=== PATIENT | female | born 1980 ===

== ENCOUNTER 2020-05-26 17:03 | Outpatient (REF) | payer OTHER, SELFPAY ==
--- NOTE | 2020-05-26 17:08 | MM_ITS ---
EXAMINATION: MM SCREENING DIGITAL BREAST TOMOSYNTHESIS, BILATERAL CLINICAL INFORMATION: Screening. Asymptomatic. No prior breast imaging. Age 40. No family history breast cancer. The lifetime risk of breast cancer based on the Tyrer-Cuzick Model is 11%. COMPARISON: None (current study represents initial baseline exam). TECHNIQUE: Digital breast tomosynthesis is performed in both the craniocaudal and mediolateral oblique views along with computer-aided detection (CAD). Synthesized 2D images are generated from the tomosynthesis. FINDINGS: There are scattered areas of fibroglandular density (ACR BI-RADS breast composition Category b). There is denser breast tissue composition in the upper outer quadrants. There are no significant masses, abnormal calcifications, or other abnormalities. The axilla and skin contours are unremarkable. IMPRESSION: No mammographic evidence of malignancy. ASSESSMENT: BI-RADS 1: Negative RECOMMENDATION: Routine annual mammography screening. This patient's information was entered into a reminder system with a target due date for their next mammogram.
== END 2020-05-26 17:04 | disposition home or self-care (01) ==
LOC: HO.MAMMO 17:03
PROVIDERS: Visit Provider Physician Assistant
DX: Z12.31 Encounter for screening mammogram for malignant neoplasm of breast (principal)
CPT/HCPCS: 77063; 77067

== ENCOUNTER 2021-07-05 09:45 | Emergency (ER) | payer OTHER, SELFPAY ==
--- NOTE | ~2021-07-05 | US_ITS ---
EXAMINATION: US PELVIS CLINICAL INFORMATION: Vaginal bleeding for 2 weeks. Abdominal cramping. COMPARISON: CT abdomen pelvis 12/07/2015 TECHNIQUE: Ultrasound of the pelvis is performed using both transabdominal and transvaginal transducers along with Doppler. Transvaginal imaging is performed due to inadequate visualization transabdominally. LMP: 2 weeks ago to current. FINDINGS: Uterus: The uterus is anteverted and measures 7.8 x 3.4 x 4.5 cm. No uterine mass. The double wall endometrial thickness is 0.5 mm. The uterus is smooth in contour and has normal myometrial echogenicity. No visible fibroid. E posterior to the fundus of uterus is a anechoic cyst measuring 1.2 x 0.7 x 1 cm. Adnexa: Both ovaries are visualized. There is normal color flow to the adnexa. There is no ovarian torsion. There is no pelvic ascites or fluid collection. Right ovary measures 1.6 x 1.2 x 1.4 cm. Volume 1.4 Left ovary measures 5.6 x 3.4 x 4.4 cm. There is a cyst in the left ovary measuring 4.7 x 3.1 x 3.8 cm. This is mostly anechoic. There is a small soft tissue nodule along the wall measuring 7 x 8 x 10 mm. Vascular flow not defined within the nodule with color Doppler. The CAT scan of 12/07/2015 demonstrate a cyst in the left adnexa previously measuring 5.3 x 3.6 x 5.1 cm. US/US pelvic and transvaginal IMPRESSION: 1. Normal ultrasound of uterus and right ovary. 2. Cyst in the left adnexa related to the ovary measuring 4.7 cm. This has a solid nodule along the wall measuring 1 cm. This cyst was also present on the CAT scan of 12/07/2015 previously measured 5.3 cm. This can be further assessed with MRI without and with IV contrast. Surgical consult may be considered as well.
--- NOTE | ~2021-07-05 | US_ITS ---
EXAMINATION: US PELVIS CLINICAL INFORMATION: Vaginal bleeding for 2 weeks. Abdominal cramping. COMPARISON: CT abdomen pelvis 12/07/2015 TECHNIQUE: Ultrasound of the pelvis is performed using both transabdominal and transvaginal transducers along with Doppler. Transvaginal imaging is performed due to inadequate visualization transabdominally. LMP: 2 weeks ago to current. FINDINGS: Uterus: The uterus is anteverted and measures 7.8 x 3.4 x 4.5 cm. No uterine mass. The double wall endometrial thickness is 0.5 mm. The uterus is smooth in contour and has normal myometrial echogenicity. No visible fibroid. E posterior to the fundus of uterus is a anechoic cyst measuring 1.2 x 0.7 x 1 cm. Adnexa: Both ovaries are visualized. There is normal color flow to the adnexa. There is no ovarian torsion. There is no pelvic ascites or fluid collection. Right ovary measures 1.6 x 1.2 x 1.4 cm. Volume 1.4 Left ovary measures 5.6 x 3.4 x 4.4 cm. There is a cyst in the left ovary measuring 4.7 x 3.1 x 3.8 cm. This is mostly anechoic. There is a small soft tissue nodule along the wall measuring 7 x 8 x 10 mm. Vascular flow not defined within the nodule with color Doppler. The CAT scan of 12/07/2015 demonstrate a cyst in the left adnexa previously measuring 5.3 x 3.6 x 5.1 cm. US/US pelvic ovarian doppler IMPRESSION: 1. Normal ultrasound of uterus and right ovary. 2. Cyst in the left adnexa related to the ovary measuring 4.7 cm. This has a solid nodule along the wall measuring 1 cm. This cyst was also present on the CAT scan of 12/07/2015 previously measured 5.3 cm. This can be further assessed with MRI without and with IV contrast. Surgical consult may be considered as well.
[2021-07-05 10:33] VITALS: BP 125/74; PULSE 76; RESP 16; TEMP 36.9; O2SAT 100; BMI 27.3
[2021-07-05 12:20] LABS: MANUAL DIFF FLAG NO
[2021-07-05 12:22] LABS: Basophils Percent Auto 0.2 % (0-2); Eosinophils Percent Auto 0.5 % (0-4); Hematocrit 39.3 % (37.0-47.0); Hemoglobin 13.4 g/dl (12.0-16.0); Imm Gran Abs Auto 0.02 X10*3/uL (0.00-0.03); Imm Gran Pct Auto 0.3 % (0.0-0.4); Lymphocytes Absolute Auto 1.5 X10*3/uL (1.2-4.9); Mean Corpuscular HGB Conc 34.1 g/dl (31.0-35.0); Mean Corpuscular Hemoglobin 32.8 pg (27.0-33.0); Mean Corpuscular Volume 96.1 fL (80.0-98.0); Mean Platelet Volume 9.4 fL (9.4-12.3); Monocytes Absolute Auto 0.4 X10*3/uL (0.1-1.2); Monocytes Percent Auto 6.8 % (2-11); Neutrophils Absolute Auto 3.8 x10*3/uL (2.0-8.3); Neutrophils Percent Auto 66.2 % (45-73); Platelet Count 232 X10*3/uL (160-400); Red Blood Count 4.09 X10*6/uL (4.20-5.50); Red Cell Distribution Width 11.7 % (11.0-16.0); White Blood Count 5.7 X10*3/uL (4.8-10.8)
[2021-07-05 12:36] LABS: Anion Gap 12 (12-20); Blood Urea Nitrogen 9 mg/dL (9-16); Calcium 8.9 mg/dL (8.4-10.2); Carbon Dioxide 18 mmol/L (22-29); Chloride 110 mmol/L (96-108); Creatinine Clr Calc Pharmacy 103.3; Estimated Glomerular Filt Rate > 60; Glucose Random 85 mg/dL (60-115); Potassium 4.1 mmol/L (3.3-5.1); Sodium 136 mmol/L (135-145)
[2021-07-05 12:42] LABS: Appearance Urine HAZY; Color Urine YELLOW; Glucose Urine UA NEG (NEG); Leukocyte Esterase Urine NEG (NEG); Nitrite Urine NEG (NEG); Specific Gravity - Urine 1.025 (1.005-1.025); UACC Culture Trigger NO; Urine Blood 3+ (NEG); Urine Ketones NEG (NEG); Urine Protein NEG (NEG-TRACE)
[2021-07-05 13:14] LABS: Squamous Epithelial Cell Urine 2+ /LPF
--- NOTE | 2021-07-05 14:53 | ED.GENADULT ---
HPI - General Adult General Chief complaint: Vaginal Bleeding Stated complaint: vaginal bleeding, multiple complaints Time Seen by Provider: 07/05/21 13:00 Source: patient Mode of arrival: ambulatory History of Present Illness HPI narrative: 41-year-old female with past medical history of tubal ligation presenting to the ED complaining of bright red vaginal bleeding x2 weeks. Admits bleeding initially started as normal menstruation however continued bleeding, using about 1-2 pads daily. Reports associated lower abdominal/suprapubic cramping, nausea, and intermittent dizzy spells. Denies fever, chills, vomiting, diarrhea, vaginal discharge, CP/SOB, dysuria/hematuria Patient is sexually active with 1 partner, denies concern for STI Onset (ago): week(s) Related Data Allergies Allergy/AdvReac Type Severity Reaction Status Date / Time No Known Allergies Allergy Verified 07/06/20 08:53 Review of Systems Review of Systems: Constitutional: No Fever, No Fatigue, No Malaise ENT/Mouth: No Ear Pain, No Nasal Congestion,No sore throat, No Rhinorrhea Eyes: No Eye Pain, No Swelling, No Redness, No Vision Changes Cardiovascular: No Chest Pain, No SOB Respiratory: No Cough, No Dyspnea Gastrointestinal: + Nausea, No Vomiting, No Diarrhea, No Constipation, No Abdominal pain Genitourinary: + irregular bleeding, No vaginal discharge, No Dysuria, No Urinary Frequency, No Hematuria,No Flank Pain Musculoskeletal: No joint pain, No Myalgias, No Joint Swelling Skin: No Skin Lesions, No rash Neuro: No Weakness, No Numbness,+ intermittent Dizziness, No Headache Yes all other systems are reviewed and are negative [facility] Past Medical History Attestation statement: The following information was validated with the patient. Surgical History History of tubal ligation Family History Family History Father High cholesterol Hypertension Mother High cholesterol Hypertension Maternal Grandmother No problems noted. Paternal Grandmother Lung cancer Cervical cancer Paternal Grandfather Medical history unknown Social History Social History Advance Directives: No Patient : No Physical Exam Vital Signs: Vital Signs: Last Vital Signs Temp 98.5 F 07/05/21 10:33 Pulse 76 07/05/21 10:33 Resp 16 07/05/21 10:33 BP 125/74 07/05/21 10:33 Pulse Ox 100 07/05/21 10:33 Body Mass Index 27.3 Const: General: cooperative, healthy appearing and no acute distress Orientation/consciousness: patient oriented x3 Limitations: no limitations HENMT: Head: Yes normal to inspection Ears: hearing grossly normal bilaterally General nose exam: Normal external nose present Face and sinus: Yes normal facial exam Eyes: General: appearance normal, both eyes and all related structures EOM: EOMs intact bilaterally Neck: Neck: Yes normal visual inspection and Yes no meningeal signs Resp: Effort & Inspection: normal respiratory effort and no respiratory distress Auscultation: clear to auscultation bilaterally Cardio: Rate: regular rate Heart sounds: S1 normal heart sound present and S2 normal heart sound present GI: Inspection: Yes normal to inspection Palpation (GI): Soft to palpation, Tenderness to palpation present (GI) (Suprapubic), no guarding and not rigid : Other: On pelvic scant clear discharge/blood coming from cervix, no active hemorrhage. No lesions. No CMT. Mild bilateral adnexal tenderness General: Yes no CVA tenderness Back/Spine/Pelvis: Back: no CVA tenderness Skin: Rashes: no rashes Wounds: no wounds Neuro: General: patient oriented x3 and no meningeal signs Gait exam (Neuro): Normal gait present Extrem: General: Yes normal to inspection Course Course Course Narrative: -1549--no leukocytosis. H&H stable. Labs otherwise unremarkable, beta quant negative -UA with RBCs/not infected -1645--US pelvic ovarian doppler IMPRESSION: 1. Normal ultrasound of uterus and right ovary. 2. Cyst in the left adnexa related to the ovary measuring 4.7 cm. This has a solid nodule along the wall measuring 1 cm. This cyst was also present on the CAT scan of 12/07/2015 previously measured 5.3 cm. This can be further assessed with MRI without and with IV contrast. Surgical consult may be considered as well. >> results discussed with patient including worrisome signs and symptoms and strict return precautions any to follow-up with OBGYN, patient verbalized understanding feel safe for discharge home at this time Will hold on STI treatment until cultures result, as patient has low concern for STI at this time Medical Decision Making MDM Narrative Medical decision making narrative: 41-year-old female with past medical history of tubal ligation presenting to the ED complaining of bright red vaginal bleeding x2 weeks. Admits bleeding initially started as normal menstruation however continued bleeding, using about 1-2 pads daily. On exam vital signs stable, NAD/nontoxic, abdomen soft with suprapubic tenderness, no CVAT. On pelvic scant clear discharge/vaginal bleeding noted from cervix without active hemorrhage. No CMT. Mild bilateral adnexal tenderness. Exam not consistent with PID Concern for DUB vs ovarian cyst vs ovarian torsion. Rule out although low concern with patient's history of tubal ligation. Lower concern for appendicitis/diverticulitis/pancreatitis Plan: Labs, UA, STI testing, ultrasound Medical Records Medical records reviewed: Yes I reviewed the patient's medical records. Lab Data Lab results reviewed: Yes I reviewed the patient's lab results. Result diagrams: 07/05/21 12:05 07/05/21 12:05 Labs: Lab Results 07/05/21 07/05/21 07/05/21 Range/Units 12:05 12:05 12:05 WBC 5.7 (4.8-10.8) X10*3/uL RBC 4.09 L (4.20-5.50) X10*6/uL Hgb 13.4 (12.0-16.0) g/dl Hct 39.3 (37.0-47.0) % MCV 96.1 (80.0-98.0) fL MCH 32.8 (27.0-33.0) pg MCHC 34.1 (31.0-35.0) g/dl RDW 11.7 (11.0-16.0) % Plt Count 232 (160-400) X10*3/uL MPV 9.4 (9.4-12.3) fL Immature Gran % (Auto) 0.3 (0.0-0.4) % Neut % (Auto) 66.2 (45-73) % Lymph % (Auto) 26.0 (20-40) % Collin % (Auto) 6.8 (2-11) % Eos % (Auto) 0.5 (0-4) % Baso % (Auto) 0.2 (0-2) % Lymph # (Auto) 1.5 (1.2-4.9) X10*3/uL Collin # (Auto) 0.4 (0.1-1.2) X10*3/uL Eos # (Auto) 0.0 (0.0-0.4) X10*3/uL Baso # (Auto) 0.0 (0.0-0.2) X10*3/uL Abs Immat Gran (auto) 0.02 (0.00-0.03) X10*3/uL Absolute Neuts (auto) 3.8 (2.0-8.3) x10*3/uL Absolute Nucleated RBC 0.000 (0.0-0.012) X10*3/uL Nucleated RBC % (auto) 0.0 (0.0-0.2) /100WBC Sodium 136 (135-145) mmol/L Potassium 4.1 (3.3-5.1) mmol/L Chloride 110 H (96-108) mmol/L Carbon Dioxide 18 L (22-29) mmol/L Anion Gap 12 (12-20) BUN 9 (9-16) mg/dL Creatinine 0.59 (0.5-1.4) mg/dL Estim Creat Clear Calc 103.3 Estimated GFR > 60 Random Glucose 85 (60-115) mg/dL Calcium 8.9 (8.4-10.2) mg/dL Magnesium 2.1 (1.6-2.6) mg/dL Total Bilirubin 0.6 (0.0-1.0) mg/dL Direct Bilirubin 0.2 (0.0-0.5) mg/dL AST 22 (5-31) U/L ALT 25 (0-31) U/L Alkaline Phosphatase 64 (39-117) U/L Total Protein 7.6 (6.5-8.0) g/dL Albumin 4.4 (3.5-5.0) g/dL Beta HCG, Quant < 2 mIU/mL Urine Color YELLOW Urine Appearance HAZY Urine pH 6.0 (5.0-8.0) Ur Specific [place] 1.025 (1.005-1.025) Urine Protein NEG (NEG-TRACE) MG/DL Urine Glucose (UA) NEG (NEG) MG/DL Urine Ketones NEG (NEG) MG/DL Urine Blood 3+ H (NEG) Urine Nitrite NEG (NEG) Ur Leukocyte Esterase NEG (NEG) Urine RBC 1-4 (0) /HPF Urine WBC 1-4 (0-4) /HPF Ur Squamous Epith Cells 2+ /LPF Urine Bacteria NONE /LPF Discharge Plan Discharge Clinical Impression: Vaginal bleeding, Cyst of left ovary Patient Disposition: Home, Self-Care Instructions: Ovarian Cyst (ED), Dysfunctional Uterine Bleeding (ED) Additional Instructions: Your blood work was reassuring today in the emergency department Ultrasound shows a 4.7 cm cyst in her left ovary, it is recommended that you follow-up with OBGYN/surgeon Your tested for sexually transmitted infections, the culture should be back in 2 days, will call you for positive results only. Refrain from any sexual contact until you know the results of her cultures If her bleeding persists/worsens, he persistent worsening or unbearable abdominal pain, develops fever, nausea or vomiting please return to the ED Referrals: Ismael Petersen MD [Physician] - 3 days
[2021-07-05 15:12] LABS: Alanine Aminotransferase 25 U/L (0-31); Albumin Level 4.4 g/dL (3.5-5.0); Alkaline Phosphatase 64 U/L (39-117); Aspartate Amino Transferase 22 U/L (5-31); Bilirubin Direct 0.2 mg/dL (0.0-0.5); Bilirubin Total 0.6 mg/dL (0.0-1.0); Magnesium 2.1 mg/dL (1.6-2.6); Total Protein 7.6 g/dL (6.5-8.0)
[2021-07-05 15:19] LABS: HCG Quantitative < 2 mIU/mL
--- NOTE | 2021-07-05 16:46 | PC.NURSE ---
THIS PCT SET UP AND ASSIST BILL [facility] WITH PATIENT PELVIC EXAM .
[2021-07-06 03:00] LABS: CT PCR NOT DETECTED (Not Detect.); NG PCR NOT DETECTED (Not Detect.)
[2021-07-06 09:39] LABS: BV Int Neg Control Negative (Negative); BV Int Pos Control Positive (Positive)
== END 2021-07-05 19:36 | disposition home or self-care (01) ==
PROVIDERS: Physician Assistant; Emergency Provider Emergency Medicine
DX: N83.202 Unspecified ovarian cyst, left side (principal); N93.9 Abnormal uterine and vaginal bleeding, unspecified; R11.0 Nausea; R42 Dizziness and giddiness; Z98.51 Tubal ligation status
CPT/HCPCS: 36415; 76830; 76856; 80048; 80076; 81001; 81003; 83735; 84702; 85025; 87480; 87491; 87510; 87591; 87660; 93975; 99283; 99284

== ENCOUNTER 2022-03-21 08:57 | Outpatient (REF) | payer OTHER, SELFPAY ==
--- NOTE | ~2022-03-21 | US_ITS ---
EXAMINATION: US THYROID CLINICAL INFORMATION: Nontoxic single thyroid nodule. COMPARISON: US thyroid 04/06/2018. Ultrasound biopsy, fine needle aspiration 07/26/2018. TECHNIQUE: Linear transducer grayscale and color Doppler examination with attention to the region of the thyroid. FINDINGS: SIZE: Measurements of the thyroid lobes and nodules are given in sagittal, anteroposterior and transverse dimensions respectively. Right Thyroid Lobe: 5.1 x 1.8 x 1.7 cm, volume 8.2 mL. Previously 4.9 x 1.8 x 1.9 cm, volume 8.8 mL. Parenchyma: The gland echotexture is homogeneous. Thyroid vascularity is increased. Left Thyroid Lobe: 5.2 x 1.9 x 1.8 cm, volume 9.3 mL. Previously 4.9 x 1.6 x 1.7 cm, volume 7.0 mL. Parenchyma: The gland echotexture is homogeneous. Thyroid vascularity is increased. Isthmus: 0.6 cm in maximum AP dimension. Previously 0.6 cm. Estimated total number of nodules greater than or equal to 1 cm: 2. [facility] Psych[facility] nodules are described as follows: 1. Location: Left inferior. Size: 1.4 x 1.3 x 1.5 cm, volume 1.48 mL. Previously: 1.3 x 1.0 x 1.2 cm, volume 0.82 mL. Nodule characteristics: Composition: Solid/almost completely solid (2). Echogenicity: Hypoechoic (2). Shape: Not taller than wide (0). Margins: Smooth (0). Echogenic Foci: Punctate echogenic foci (3). ACR TI-RADS total points: 7 ACR TI-RADS category: 5 Significant change in size (>/= 20% in 2 dimensions and minimal increase of 2 mm or 50% or greater increase in volume): Change in features: Change in ACR TI-RADS risk category: 2. Location: Right mid. Size: 0.8 x 0.5 x 0.6 cm, volume 0.13 mL. Previously: 0.6 x 0.5 x 0.5 cm, volume 0.08 mL. Nodule characteristics: Composition: Solid (2). Echogenicity: Hyperechoic (1). Shape: Not taller than wide (0). Margins: Smooth (0). Echogenic Foci: None (0). ACR TI-RADS total points: 3 ACR TI-RADS category: 3 Significant change in size (>/= 20% in 2 dimensions and minimal increase of 2 mm or 50% or greater increase in volume): Change in features: Change in ACR TI-RADS risk category: 3. Location: Right mid. Size: 0.9 x 0.6 x 0.6 cm, volume 0.16 mL. Previously: 0.9 x 0.6 x 0.6 cm, volume 0.16 mL. Nodule characteristics: Composition: Solid/almost completely solid (2). Echogenicity: Very hypoechoic (3). Shape: Not taller than wide (0). Margins: Smooth (0). Echogenic Foci: None (0). ACR TI-RADS total points: 5 ACR TI-RADS category: 4 Significant change in size (>/= 20% in 2 dimensions and minimal increase of 2 mm or 50% or greater increase in volume): Change in features: Change in ACR TI-RADS risk category: 4. Location: Right inferior. Size: 1.2 x 0.6 x 1.0 cm, volume 0.43 mL. Previously: 1.0 x 0.6 x 1.1 cm, volume 0.35 mL. Nodule characteristics: Composition: Solid (2). Echogenicity: Very hypoechoic (3). Shape: Not taller than wide (0). Margins: Smooth (0). Echogenic Foci: Punctate echogenic foci (3). ACR TI-RADS total points: 8 ACR TI-RADS category: 5 Significant change in size (>/= 20% in 2 dimensions and minimal increase of 2 mm or 50% or greater increase in volume): Change in features: Change in ACR TI-RADS risk category: 5. Location: Left mid. Size: 0.8 x 0.4 x 0.7 cm, volume 0.11 mL. Previously: 0.6 x 0.4 x 0.6 cm, volume 0.09 mL. Nodule characteristics: Composition: Solid (2). Echogenicity: Hypoechoic (2). Shape: Not taller than wide (0). Margins: Smooth (0). Echogenic Foci: None (0). ACR TI-RADS total points: 4 ACR TI-RADS category: 4 Significant change in size (>/= 20% in 2 dimensions and minimal increase of 2 mm or 50% or greater increase in volume): Change in features: Change in ACR TI-RADS risk category: NODES: No lymphadenopathy is seen in the tissue surrounding the thyroid gland. US/US thyroid IMPRESSION: Upper normal-size hypervascular thyroid gland. Stable bilateral thyroid nodules. ACR TI-RADS RECOMMENDATION REFERENCE: Ultrasound-guided fine-needle aspiration, followup ultrasound, no further follow up. * TR1 (0 point) and TR 2 (2 points): No FNA or follow up * TR3 (3 points): FNA if more than or equal to 2.5 cm in maximum dimension, followup ultrasound in 1, 3 and 5 years if 1.5 to 2.4 cm in maximum dimension. * TR4 (4-6 points): FNA if more than or equal to 1.5 cm in maximum dimension, followup ultrasound in 1, 2, 3 and 5 years if 1 to 1.4 cm in maximum dimension. * TR5 (more than or equal to 7 points): FNA if more than or equal to 1 cm in maximum dimension, followup ultrasound every year for 5 years if 0.5 to 0.9 cm in maximum dimension. * TR3, TR4 or TR5 nodules that are below the size threshold for follow up receive no follow up.
[2022-03-21 10:48] LABS: Hematocrit 41.8 % (37.0-47.0); Hemoglobin 14.4 g/dl (12.0-16.0); Mean Corpuscular HGB Conc 34.4 g/dl (31.0-35.0); Mean Corpuscular Hemoglobin 32.1 pg (27.0-33.0); Mean Corpuscular Volume 93.3 fL (80.0-98.0); Mean Platelet Volume 9.6 fL (9.4-12.3); Platelet Count 238 X10*3/uL (160-400); Red Blood Count 4.48 X10*6/uL (4.20-5.50); Red Cell Distribution Width 11.8 % (11.0-16.0)
[2022-03-21 11:43] LABS: Alanine Aminotransferase 31 U/L (0-31); Albumin Level 4.7 g/dL (3.5-5.0); Alkaline Phosphatase 71 U/L (39-117); Anion Gap 14 (12-20); Aspartate Amino Transferase 26 U/L (5-31); Bilirubin Total 0.7 mg/dL (0.0-1.0); Blood Urea Nitrogen 10 mg/dL (9-16); Calcium 9.4 mg/dL (8.4-10.2); Carbon Dioxide 25 mmol/L (22-29); Chloride 107 mmol/L (96-108); Cholesterol 164 mg/dL; Estimated Glomerular Filt Rate > 60; Glucose Fasting 82 mg/dL (60-99); HDL Cholesterol 46 mg/dL; LDL Cholesterol Calculated 97 mg/dl; Potassium 4.3 mmol/L (3.3-5.1); Sodium 142 mmol/L (135-145); Total Protein 8.2 g/dL (6.5-8.0); Triglycerides 106 mg/dL
[2022-03-21 11:55] LABS: TSH reflex Free T4 0.35 uIU/mL (0.32-4.0)
== END 2022-03-21 08:58 | disposition home or self-care (01) ==
LOC: HO.US 08:57
PROVIDERS: Visit Provider Physician Assistant
DX: Z13.1 Encounter for screening for diabetes mellitus (principal); Z13.220 Encounter for screening for lipoid disorders; E04.1 Nontoxic single thyroid nodule
CPT/HCPCS: 36415; 76536; 80053; 80061; 84443; 85027

== ENCOUNTER 2022-06-14 11:20 | Outpatient (REF) | payer OTHER, SELFPAY ==
[2022-06-14 13:51] LABS: MANUAL DIFF FLAG NO
[2022-06-14 14:00] LABS: Basophils Percent Auto 0.6 % (0-2); Eosinophils Absolute Auto 0.1 X10*3/uL (0.0-0.4); Eosinophils Percent Auto 1.5 % (0-4); Hemoglobin 14.2 g/dl (12.0-16.0); Imm Gran Abs Auto 0.02 X10*3/uL (0.00-0.03); Imm Gran Pct Auto 0.4 % (0.0-0.4); Lymphocytes Absolute Auto 2.1 X10*3/uL (1.2-4.9); Mean Corpuscular HGB Conc 34.6 g/dl (31.0-35.0); Mean Corpuscular Hemoglobin 32.2 pg (27.0-33.0); Mean Platelet Volume 9.9 fL (9.4-12.3); Monocytes Absolute Auto 0.6 X10*3/uL (0.1-1.2); Monocytes Percent Auto 10.2 % (2-11); Neutrophils Absolute Auto 2.6 x10*3/uL (2.0-8.3); Neutrophils Percent Auto 48.3 % (45-73); Platelet Count 244 X10*3/uL (160-400); Red Blood Count 4.41 X10*6/uL (4.20-5.50); White Blood Count 5.4 X10*3/uL (4.8-10.8)
[2022-06-14 14:21] LABS: Alanine Aminotransferase 33 U/L (0-31); Albumin Level 4.4 g/dL (3.5-5.0); Alkaline Phosphatase 65 U/L (39-117); Anion Gap 12 (12-20); Aspartate Amino Transferase 28 U/L (5-31); Bilirubin Total 0.4 mg/dL (0.0-1.0); Blood Urea Nitrogen 7 mg/dL (9-16); Calcium 9.1 mg/dL (8.4-10.2); Carbon Dioxide 23 mmol/L (22-29); Chloride 105 mmol/L (96-108); Estimated Glomerular Filt Rate > 60; Glucose Random 81 mg/dL (60-115); Potassium 3.6 mmol/L (3.3-5.1); Sodium 136 mmol/L (135-145); Total Protein 7.6 g/dL (6.5-8.0)
[2022-06-14 14:30] LABS: Protein/Creatinine Ratio, Ur 0.09 (<0.2); Total Protein Urine Random 16 mg/dL (<12)
[2022-06-14 14:49] LABS: Erythrocyte Sedimentation Rate 6 MM/HR (0-20)
[2022-06-15 18:57] LABS: Complement C3 129 mg/dL (83-193)
[2022-06-19 14:01] LABS: Anti Nuclear Antibody Pattern Nuclear, Homogeneous; Anti Nuclear Antibody Screen POSITIVE (NEGATIVE)
== END 2022-06-14 11:21 | disposition home or self-care (01) ==
LOC: HO.10HDL 11:20
PROVIDERS: Visit Provider Internal Medicine Rheumatology
DX: L93.0 Discoid lupus erythematosus (principal)
CPT/HCPCS: 36415; 80053; 84156; 85025; 85652; 86038; 86039; 86160; 99202

== ENCOUNTER → 2023-09-29 13:38 | Outpatient (BNVA) | payer OTHER, SELFPAY | PROVIDERS: PCP Physician Assistant; Visit Provider Nurse Practitioner Family ==

== ENCOUNTER → 2023-12-16 08:00 | Outpatient (BNV) | payer OTHER, SELFPAY | PROVIDERS: PCP Physician Assistant; Visit Provider Radiology Diagnostic Radiology | DX: Z12.31 Encounter for screening mammogram for malignant neoplasm of breast (principal) | CPT/HCPCS: 77063; 77067 ==

== ENCOUNTER 2023-12-16 08:01 | Outpatient (REF) | payer OTHER, SELFPAY | END 2023-12-16 08:02 | disposition home or self-care (01) | LOC: HO.MAMMO 08:01 | PROVIDERS: PCP Physician Assistant; Visit Provider Physician Assistant | DX: Z12.31 Encounter for screening mammogram for malignant neoplasm of breast (principal) | CPT/HCPCS: 77063; 77067 ==

== ENCOUNTER 2023-12-21 14:32 | Outpatient (AMB) | payer OTHER, SELFPAY ==
[2023-12-21 14:37] VITALS: BP 114/68; PULSE 76; O2SAT 98; BMI 30.9
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
== END 2023-12-21 15:08 | disposition home or self-care (01) ==
PROVIDERS: PCP Physician Assistant; Visit Provider Physician Assistant
DX: Z00.00 Encounter for general adult medical examination without abnormal findings (principal); L93.2 Other local lupus erythematosus; J41.0 Simple chronic bronchitis; F17.210 Nicotine dependence, cigarettes, uncomplicated; M54.50 Low back pain, unspecified
CPT/HCPCS: 99396; 99406

== ENCOUNTER 2023-12-31 19:11 | Emergency (ER) | payer OTHER, SELFPAY ==
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
[2023-12-31 19:26] VITALS: BP 140/92; PULSE 108; O2SAT 98
[2023-12-31 20:16] VITALS: BP 149/79; PULSE 87; RESP 16; TEMP 36.8; O2SAT 98; BMI 29.3
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
[2023-12-31 20:29] LABS: Basophils Percent Auto 0.2 % (0-2); Eosinophils Absolute Auto 0.1 X10*3/uL (0.0-0.4); Eosinophils Percent Auto 0.6 % (0-4); Hematocrit 39.4 % (37.0-47.0); Hemoglobin 13.7 g/dl (12.0-16.0); Imm Gran Abs Auto 0.03 X10*3/uL (0.00-0.03); Imm Gran Pct Auto 0.3 % (0.0-0.4); Lymphocytes Absolute Auto 2.4 X10*3/uL (1.2-4.9); MANUAL DIFF FLAG NO; Mean Corpuscular HGB Conc 34.8 g/dl (31.0-35.0); Mean Corpuscular Hemoglobin 32.2 pg (27.0-33.0); Mean Corpuscular Volume 92.5 fL (80.0-98.0); Mean Platelet Volume 9.2 fL (9.4-12.3); Monocytes Absolute Auto 0.6 X10*3/uL (0.1-1.2); Monocytes Percent Auto 6.7 % (2-11); Neutrophils Absolute Auto 5.8 x10*3/uL (2.0-8.3); Neutrophils Percent Auto 65.2 % (45-73); Platelet Count 220 X10*3/uL (160-400); Red Blood Count 4.26 X10*6/uL (4.20-5.50); Red Cell Distribution Width 11.5 % (11.0-16.0); White Blood Count 8.8 X10*3/uL (4.8-10.8)
[2023-12-31 20:47] LABS: Alanine Aminotransferase 28 U/L (0-31); Albumin Level 4.6 g/dL (3.5-5.0); Alkaline Phosphatase 60 U/L (39-117); Anion Gap 14 (12-20); Aspartate Amino Transferase 34 U/L (5-31); Bilirubin Total 0.5 mg/dL (0.0-1.0); Blood Urea Nitrogen 8 mg/dL (9-16); Calcium 9.2 mg/dL (8.4-10.2); Carbon Dioxide 20 mmol/L (22-29); Chloride 109 mmol/L (96-108); Creatinine Clr Calc Pharmacy 92.1; Estimated Glomerular Filt Rate > 60; Glucose Random 105 mg/dL (60-115); Potassium 3.4 mmol/L (3.3-5.1); Sodium 140 mmol/L (135-145); Total Protein 7.9 g/dL (6.5-8.0)
[2023-12-31] MEDS: Acetaminophen 325 MG TABLET 650 MG PO (23:55)
[2024-01-01] VITALS: BP 143/84; PULSE 80; RESP 16; TEMP 36.8; O2SAT 98
[2024-01-01 00:19] VITALS: BP 143/84; PULSE 80; RESP 16; TEMP 36.8; O2SAT 98
== END 2024-01-01 00:19 | disposition home or self-care (01) ==
PROVIDERS: Emergency Provider Internal Medicine; PCP Physician Assistant
DX: S01.01XA Laceration without foreign body of scalp, initial encounter (principal); Y04.2XXA Assault by strike against or bumped into by another person, initial encounter; Y93.9 Activity, unspecified; Y92.039 Unspecified place in apartment as the place of occurrence of the external cause; Y99.9 Unspecified external cause status; F17.210 Nicotine dependence, cigarettes, uncomplicated; F12.90 Cannabis use, unspecified, uncomplicated
CPT/HCPCS: 12002; 36415; 70450; 80053; 85025; 99284

== ENCOUNTER 2024-01-08 09:37 | Outpatient (REF) | payer OTHER, SELFPAY ==
--- NOTE | ~2024-01-08 | US_ITS ---
EXAMINATION: US THYROID CLINICAL INFORMATION: Nontoxic single thyroid nodule. FNA biopsy 07/26/2018-benign COMPARISON: Thyroid ultrasound 03/21/2022 and 04/06/2018. Ultrasound-guided thyroid biopsy 07/26/2018. TECHNIQUE: Linear transducer grayscale and color Doppler examination with attention to the region of the thyroid. FINDINGS: SIZE: Measurements of the thyroid lobes and nodules are given in sagittal, anteroposterior and transverse dimensions respectively. Right Thyroid Lobe: 5.2 x 1.9 x 1.7 cm, volume 8.8 mL. Previously 5.1 x 1.8 x 1.9 cm, volume 8.2 mL. Parenchyma: The gland echotexture is homogeneous. Thyroid vascularity is increased. Left Thyroid Lobe: 4.7 x 1.9 x 1.7 cm, volume 7.9 mL. Previously 5.2 x 1.9 x 1.8 cm, volume 9.3 mL. Parenchyma: The gland echotexture is homogeneous. Thyroid vascularity is normal. Isthmus: 0.6 cm in maximum AP dimension. Previously 0.6 cm. Estimated total number of nodules greater than or equal to 1 cm: 2. Manufacturing Tech nodules are described as follows: 1. Location: Right mid pole. Size: 0.9 x 0.6 x 1.1 cm, volume 0.31 mL. Previously: 1.2 x 0.6 x 1.0 cm, volume 0.43 mL. Nodule characteristics: Composition: Solid (2). Echogenicity: Very hypoechoic (3). Shape: Not taller than wide (0). Margins: Smooth (0). Echogenic Foci: Punctate echogenic foci (3). ACR TI-RADS total points: 8 Previous: 8 ACR TI-RADS category: 5 Previous: 5 Significant change in size (>/= 20% in 2 dimensions and minimal increase of 2 mm or 50% or greater increase in volume): No Change in features: No Change in ACR TI-RADS risk category: No 2. Location: Right mid pole. Size: 0.6 x 0.5 x 0.6 cm, volume 0.10 mL. Previously: 0.8 x 0.5 x 0.6 cm, volume 0.13 mL. Nodule characteristics: Composition: Solid (2). Echogenicity: Hyperechoic (1). Shape: Not taller than wide (0). Margins: Smooth (0). Echogenic Foci: None (0). ACR TI-RADS total points: 3 Previous: 3 ACR TI-RADS category: 3 Previous: 3 Significant change in size (>/= 20% in 2 dimensions and minimal increase of 2 mm or 50% or greater increase in volume): No Change in features: No Change in ACR TI-RADS risk category: No 3. Location: Right lower pole. Size: 1.0 x 0.6 x 0.5 cm, volume 0.16 mL. Previously: 0.9 x 0.6 x 0.6 cm, volume 0.160 mL. Nodule characteristics: Composition: Solid/almost completely solid (2). Echogenicity: Hypoechoic (2). Shape: Not taller than wide (0). Margins: Smooth (0). Echogenic Foci: None (0). ACR TI-RADS total points: 4 Previous: 5 ACR TI-RADS category: 4 Previous: 4 Significant change in size (>/= 20% in 2 dimensions and minimal increase of 2 mm or 50% or greater increase in volume): No Change in features: No Change in ACR TI-RADS risk category: No 4. Location: Left mid pole. Size: 0.8 x 0.4 x 0.6 cm, volume 0.10 mL. Previously: 0.8 x 0.4 x 0.7 cm, volume 0.11 mL. Nodule characteristics: Composition: Solid (2). Echogenicity: Hypoechoic (2). Shape: Not taller than wide (0). Margins: Smooth (0). Echogenic Foci: None (0). ACR TI-RADS total points: 4 Previous: 4 ACR TI-RADS category: 4 Previous: 4 Significant change in size (>/= 20% in 2 dimensions and minimal increase of 2 mm or 50% or greater increase in volume): No Change in features: No Change in ACR TI-RADS risk category: No 5. Location: Left lower pole. Previously biopsied. Size: 1.5 x 1.3 x 1.6 cm, volume 1.64 mL. Previously: 1.4 x 1.3 x 1.5 cm, volume 1.48 mL. Nodule characteristics: Composition: Solid/almost completely solid (2). Echogenicity: Hypoechoic (2). Shape: Not taller than wide (0). Margins: Smooth (0). Echogenic Foci: None (0). ACR TI-RADS total points: 4 Previous: 7 ACR TI-RADS category: 4 Previous: 5 Significant change in size (>/= 20% in 2 dimensions and minimal increase of 2 mm or 50% or greater increase in volume): No Change in features: More cystic, no echogenic foci seen Change in ACR TI-RADS risk category: Yes NODES: No lymphadenopathy is seen in the tissue surrounding the thyroid gland. US/US thyroid IMPRESSION: 1.6 cm nodule in the lower pole of the left lobe, TR 4. This fulfills the criteria for FNA. This has been previously biopsied and was found to be benign. 0.9 cm nodule in the mid right lobe, TR 5 and 1.0 cm lower pole nodule, TR 4. Follow-up ultrasound in one year is recommended. No further follow-up of subcentimeter nodules. ACR TI-RADS RECOMMENDATION REFERENCE: Ultrasound-guided fine-needle aspiration, follow up ultrasound, no further followup. * TR1 (0 point) and TR2 (2 points): No FNA or followup * TR3 (3 points): FNA if more than or equal to 2.5 cm in maximum dimension, follow up ultrasound in 1, 3 and 5 years if 1.5 to 2.4 cm in maximum dimension. * TR4 (4-6 points): FNA if more than or equal to 1.5 cm in maximum dimension, follow up ultrasound in 1, 2, 3 and 5 years if 1 to 1.4 cm in maximum dimension. * TR5 (more than or equal to 7 points): FNA if more than or equal to 1 cm in maximum dimension, follow up ultrasound every year for 5 years if 0.5 to 0.9 cm in maximum dimension. * TR3, TR4 or TR5 nodules that are below the size threshold for follow up receive no followup.
== END 2024-01-08 09:38 | disposition home or self-care (01) ==
LOC: HO.US 09:37
PROVIDERS: PCP Physician Assistant; Visit Provider Physician Assistant
DX: E04.1 Nontoxic single thyroid nodule (principal)
CPT/HCPCS: 76536

== ENCOUNTER 2024-01-08 10:24 | Outpatient (AMB) | payer OTHER, SELFPAY ==
[2024-01-08 10:34] VITALS: BP 130/78; PULSE 68; O2SAT 100; BMI 30.3
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
== END 2024-01-08 10:57 | disposition home or self-care (01) ==
PROVIDERS: PCP Physician Assistant; Visit Provider Physician Assistant
DX: S01.01XA Laceration without foreign body of scalp, initial encounter (principal); Z48.02 Encounter for removal of sutures
CPT/HCPCS: 15853; 99213

== ENCOUNTER → 2024-01-15 10:01 | Outpatient (BNVA) | payer OTHER, SELFPAY | PROVIDERS: PCP Physician Assistant; Visit Provider Advanced Practice Midwife ==

== ENCOUNTER → 2024-01-29 10:39 | Outpatient (BNVA) | payer OTHER, SELFPAY | PROVIDERS: PCP Physician Assistant; Visit Provider Advanced Practice Midwife ==

== ENCOUNTER 2024-02-23 11:07 | Outpatient (AMB) | payer SELFPAY ==
[2024-02-23 11:08] VITALS: BP 142/82; PULSE 86; O2SAT 99; BMI 28.6
--- NOTE | 2024-02-23 11:08 | A.OFFVIS_ITS ---
Vital Signs 02/23/24 11:08 Height 5 ft Weight 146 lb 9.718 oz BMI 28.6 BP 142/82 H Blood Pressure Location Rt brachial Position Sitting Pulse 86 Pulse Source Pulse Oximeter Pulse Oximetry (%) 99 Oxygen Delivery Method Room Air Intake Visit Reasons: SLE/CM Intake Note: Patient last seen on 06/14/[address] Queen present today for follow up. Adventure Therapist Required: No Accompanied by: Self / Same As Patient Allergies bupropion [From Wellbutrin SR] Adverse Reaction (Intermediate, Verified 02/23/24 11:13) emotional Medication List - Last Reconciled 02/23/24 by Bennie Bauer MD albuterol sulfate 90 mcg/actuation (Ventolin HFA) 1 puff inhalation QID PRN 30 days fluticasone propion-salmeterol 250-50 mcg/dose (Advair Diskus) 1 inh inhalation BID 30 days hydrocortisone 1% (Anti-Itch (hydrocortisone)) 1 appl topical BID hydroxychloroquine 300 mg (1.5 x 200 mg) PO DAILY ibuprofen 800 mg PO Q8H PRN nicotine (polacrilex) 2 mg buccal Q8H PRN HPI Comments Details: This is a 44-year-old female with discoid lupus who presents for follow-up. Patient has not followed up in almost 2 years. She states that and out of her hydroxychloroquine over a year ago. She states that lesion on her left eyebrow is more irritated she is requesting hydrocortisone cream. She states that she is doing well otherwise. Most recent history by Dr. Queen 06/2022: The patient presents for evaluation of lupus. She said she had seen a pet care assistant about 8 years ago and the diagnosis of lupus was made. She had skin rash on the face as well as arthralgias at the time. I do not have any of those old records, they were at the [facility]. She stopped the hydroxychloroquine on her own because she did not think it helped her. She does recall getting full eye exams so was on it probably for about 2 years. In the past year, particularly during this summer, she noted an increase in the skin lesions on her face. She has had a persistent lesion over the left eyebrow for about 5-8 years. Other lesions developed on the right cheek and left restoration region. In the past she has also had some lesions over the scalp, arms, back, and years. She does occasionally get some fingertip color changes. These are usually coming on when she is cold. She gets arthralgias in the knees, ankles, shoulders, and feet. Occasionally she thinks the knees are swollen. She takes 800 mg of [id number]-[id number] ibuprofen once or twice a day if needed but admits she on most days does not take any ibuprofen She has no chest pain or abdominal pains. Occasionally she gets oral ulcers. [facility] Medical History Hx of abnormal cervical Pap smear Surgical History History of left salpingo-oophorectomy History of tubal ligation Family History Father High cholesterol Hypertension Mother High cholesterol Hypertension Maternal Grandmother No problems noted. 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 Cognitive needs: No Hearing needs: No Vision needs: No Female Reproductive History Menstrual Total pregnancies: 5 Full term: 5 Review of Systems Eyes Reports photophobia Skin/Breast Reports photosensitivity, Reports rash and Reports skin pain Physical Exam Vital Signs: Last Vital Signs Pulse 86 02/23/24 11:08 BP 142/82 H 02/23/24 11:08 Pulse Ox 99 02/23/24 11:08 Oxygen Delivery Method Room Air 02/23/24 11:08 BMI result Body Mass Index 28.6 Const General: cooperative, healthy appearing and comfortable Nutritional Appearance: overweight Orientation/consciousness: patient oriented x3 Limitations: no limitations HEENT Head: Yes normocephalic and Yes atraumatic Mouth: moist mucous membranes Eyes Direct Ophthalmoscopy: photophobia Resp Effort & Inspection: normal respiratory effort and able to speak in complete sentences Auscultation: clear to auscultation bilaterally Cardio Rate: regular rate Rhythm: regular rhythm Skin Other: Large hyperpigmented discoid lesion above her left eyebrow, some erythema irritation on the medial aspect of the wound Early discoid lesion on the right cheek just medial to the nose Neuro General: patient oriented x3 Extrem Other: No active synovitis Normal nailfold capillaroscopy Assessment & Plan Assessment & Plan (1) Discoid lupus: Comment: pos KONRAD dx around 2013 through skin biopsy Intermittently on hydroxychloroquine Code(s): L93.0 - Discoid lupus erythematosus Category: Medical Plan: This is a 44-year-old old female with discoid lupus who presents for follow-up. This is her 1st visit with me. She used to follow-up with Dr. Queen. Patient has not followed up in almost 2 years. She has not compliant with her hydroxychloroquine. The discoid lesion above her left eyebrow is slightly more active she is also having another lesion on her right cheek. Advised patient on the importance of regular follow-up and compliance with hydroxychloroquine. 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 Advised patient to follow-up regularly with plastic frame inserter Plan I spent 30 minutes reviewing patient's chart, evaluating patient, ordering diagnostic workup, counseling patient and documenting in the chart Orders: Orders Anti Extractable Nuclear Ag Today M32.9 - Systemic lupus erythematosus, unspecified Complement C4 Today M32.9 - Systemic lupus erythematosus, unspecified Erythrocyte Sedimentation Rate Today M32.9 - Systemic lupus erythematosus, unspecified Protein Creatinine Ratio, Ur Today M32.9 - Systemic lupus erythematosus, unspecified Complete Blood Count Auto Diff Today M32.9 - Systemic lupus erythematosus, unspecified Protein Electrophoresis, Serum Today M32.9 - Systemic lupus erythematosus, unspecified Anti DNA DS Antibody Today M32.9 - Systemic lupus erythematosus, unspecified Complement C3 Today M32.9 - Systemic lupus erythematosus, unspecified C Reactive Protein Today M32.9 - Systemic lupus erythematosus, unspecified DNA Double Stranded-Crithidia Today M32.9 - Systemic lupus erythematosus, unspecified Sjogren's Antibodies Today M32.9 - Systemic lupus erythematosus, unspecified UA w Microscopic Today M32.9 - Systemic lupus erythematosus, unspecified Comprehensive Met. Panel Today M32.9 - Systemic lupus erythematosus, unspecified Hepatitis A,B,C Profile Today Z11.59 - Encounter for screening for other viral diseases T Spot TB Today Z11.7 - Encounter for testing for latent tuberculosis infection Medications: Changed From hydroxychloroquine 300 mg PO .every other day L93.0 - Discoid lupus erythematosus To hydroxychloroquine 300 mg (1.5 x 200 mg) PO DAILY 135 tabs 0RF L93.0 - Discoid lupus erythematosus From hydrocortisone 1% (Anti-Itch (hydrocortisone)) 1 appl topical BID PRN 30 grams 3RF skin irritation L93.0 - Discoid lupus erythematosus To hydrocortisone 1% (Anti-Itch (hydrocortisone)) use only for 2 weeks 1 appl topical BID 28.35 grams 0RF skin irritation L93.0 - Discoid lupus erythematosus Coding Level of Care Code Est Pt Level 4 (94320) Diagnoses Discoid lupus L93.0 Long-term use of hydroxychloroquine Z79.899
== END 2024-02-23 11:38 | disposition home or self-care (01) ==
PROVIDERS: PCP Physician Assistant; Visit Provider Student in an Organized Health Care Education/Training Program
DX: L93.0 Discoid lupus erythematosus (principal); Z79.899 Other long term (current) drug therapy
CPT/HCPCS: 99214

== ENCOUNTER → 2024-02-23 11:07 | Outpatient (BNVA) | payer OTHER, SELFPAY | PROVIDERS: PCP Physician Assistant; Visit Provider Student in an Organized Health Care Education/Training Program | DX: L93.0 Discoid lupus erythematosus (principal); Z79.899 Other long term (current) drug therapy | CPT/HCPCS: 99212 ==

== ENCOUNTER 2024-04-24 08:02 | Outpatient (REF) | payer OTHER, SELFPAY ==
--- NOTE | ~2024-04-24 | FL_ITS ---
EXAMINATION: XR FLUOROSCOPY UPPER GI WITH AIR CLINICAL INFORMATION: Dysphagia COMPARISON: None TECHNIQUE: Fluoroscopic air contrast upper GI examination was performed utilizing standard techniques with thin and thick barium and effervescent granules. Numerous spot images were obtained. FINDINGS: Lateral cine images of the oropharynx and hypopharynx demonstrate normal swallow mechanism with normal epiglottic inversion and soft palate elevation. Trace laryngeal penetration is seen with thick barium. No tracheal penetration, glottic or subglottic aspiration identified. No nasopharyngeal reflux present. Hypopharyngeal structures appear normal without evidence of mass or diverticulum. 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 Dual and single contrast images of the esophagus demonstrate normal caliber, contour, and mucosal pattern. No evidence of stricture, mass, or ulcerations identified. Esophageal peristalsis is mildly disorganized. A small type I hiatal hernia is present. No significant gastroesophageal reflux was seen during the course of the examination and on reflux views. Dual contrast and single contrast images of the stomach demonstrated a normal contour. Mild thickening of the antral rugal folds. Prominent mucosal areae gastricae present. No masses or ulcerations are seen. Contrast freely passed into the gastric antrum and duodenal bulb without delay. Single and air-contrast images of the duodenal bulb demonstrate no abnormality. The duodenal sweep has a normal appearance, course, and mucosal fold appearance. The imaged proximal jejunum has a normal fold pattern and caliber. FLUOROSCOPY TIME: 3 minutes 35 seconds Number of Spot Images: 7 Number of Cine: 14 DOSE AREA PRODUCT: 2245 uGy-m2 (microgray-meter squared) FL/FL barium swallow with air IMPRESSION: 1. Trace laryngeal penetration with thick barium. 2. 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 3. Mildly disordered esophageal peristalsis. 4. Small type I hiatal hernia. 5. Mild thickening of the gastric antral rugal folds suspected. Prominence of the areae gastricae, suggestive of gastritis. This procedure was performed by Everardo Lozada PA-C, and supervised by Dr. Lang Electronically signed by: Rupert Lang MD 04/24/2024 04:28 PM EDT
== END 2024-04-24 08:03 | disposition home or self-care (01) ==
LOC: HO.XRAY 08:02
PROVIDERS: PCP Physician Assistant; Visit Provider Physician Assistant
DX: R13.10 Dysphagia, unspecified (principal)
CPT/HCPCS: 74221

== ENCOUNTER → 2024-04-24 08:03 | Outpatient (BNV) | payer SELFPAY | PROVIDERS: PCP Physician Assistant; Visit Provider Radiology Diagnostic Radiology | DX: R13.10 Dysphagia, unspecified (principal) | CPT/HCPCS: 74221 ==

== ENCOUNTER 2024-08-05 08:44 | Outpatient (AMB) | payer OTHER, SELFPAY ==
--- NOTE | 2024-08-05 08:44 | MHC.OFFVIS ---
Intake Visit Reasons: Gastritis Intake Note: Marilu presents as a telehealth today for gastritis. CC: She states that she is not having any concerns at this time. 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 Reports almost 2-3 years of sensation of difficulty swallowing haris with rice without any abd pain, N,V. Often has to chanel with liquids. No unintentional weight loss. Barium swallow ordered by PCP shows possibly cricopharyngeal narrowing + gastritis. Started on omeprazole. Pt has never had a screening colo. No fam hx of colon ca in FDRs. PFSH Medical History Hx of abnormal cervical Pap smear Surgical History History of left salpingo-oophorectomy History of tubal ligation Family History Father High cholesterol Hypertension Mother High cholesterol Hypertension Maternal Grandmother No problems noted. 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 Cognitive needs: No Hearing needs: No Vision needs: No Physical Exam Vital Signs: video visit NAD nonicteric speaking in full sentences Telehealth Telehealth Telehealth Platform: [facility] Location of provider rendering services: practice address Location of patient: address on file Patient Identification confirmed using: Name, : Yes Telehealth method: video Patient verbally consented to treatment: Yes Patient verbally consented to billing insurance company: Yes Patient informed of any privacy concerns related to visit: Yes Results Reviewed Results Reviewed: Barium swallow 1. Trace laryngeal penetration with thick barium. 2. 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 3. Mildly disordered esophageal peristalsis. 4. Small type I hiatal hernia. 5. Mild thickening of the gastric antral rugal folds suspected. Prominence of the areae gastricae, suggestive of gastritis. Assessment & Plan Assessment & Plan (1) Dysphagia: Code(s): R13.10 - Dysphagia, unspecified Category: Medical (2) Gastritis: Code(s): K29.70 - Gastritis, unspecified, without bleeding Category: Medical (3) Colon cancer screening: Code(s): Z12.11 - Encounter for screening for malignant neoplasm of colon Category: Medical Plan 1. 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 Other ddx include web, stricture, ring, EoE, dysmotility. Plan: - EGD with possible dilation - Pt to HOLD omeprazole x 2 weeks before egd 2. Pt also due for CRC screening. A colo will be done at the same time. Plan: - PEG prep sent and instructions reviewed - Since this was a televisit, pt was also provided online resource at [facility] [place] website for instructions Follow up after procedures Medications: New peg 3350-electrolytes [id number] -5.86 gram (Golytely) as per split prep instructions, until fecal effluent is clear 240 mL PO Q10M 4,000 mL 0RF colonoscopy Coding Level of Care Code Tele New Pt Level 4 (69460) Diagnoses Dysphagia R13.10 Gastritis K29.70 Colon cancer screening Z12.11
== END 2024-08-05 09:39 | disposition home or self-care (01) ==
LOC: HO.HGI 08:44
PROVIDERS: PCP Physician Assistant; Visit Provider Internal Medicine
DX: K29.70 Gastritis, unspecified, without bleeding (principal); R13.10 Dysphagia, unspecified; Z12.11 Encounter for screening for malignant neoplasm of colon
CPT/HCPCS: 99204

== ENCOUNTER → 2024-08-05 08:44 | Outpatient (BNVA) | payer OTHER, SELFPAY | PROVIDERS: PCP Physician Assistant; Visit Provider Internal Medicine ==